=== PATIENT | male | born 1985 | race Caucasian/White ===

== ENCOUNTER → 2021-03-27 03:37 | Outpatient (CLI) | payer OTHER, SELFPAY ==
[2021-03-27 19:43] LABS: SARS-CoV-2 RNA PCR Negative
== END ==
PROVIDERS: PCP Physician Assistant; Visit Provider Internal Medicine Gastroenterology
DX: Z01.812 Encounter for preprocedural laboratory examination (principal); Z20.822 Contact with and (suspected) exposure to COVID-19
CPT/HCPCS: C9803; U0003; U0005

== ENCOUNTER 2021-03-30 02:43 | Day surgery (SDC) | payer OTHER, SELFPAY ==
[2021-03-26 07:24] VITALS: BMI 27.6
[2021-03-30 11:23] VITALS: BP 129/76; PULSE 70; RESP 18; TEMP 36.9; O2SAT 99; BMI 27.1
[2021-03-30] MEDS: LACTATED RINGERS 1,000 ML 150 ML IV CONT (11:32)
--- NOTE | 2021-03-30 11:42 | WPDANESEPPF ---
Anes - Initial Pre Proc Eval Procedure: Operation Date: 03/30/21 12:30 Proposed Procedures p Esophagogastroduodenoscopy - Yon Mata MD Date/Time: 03/30/21 11:42 Surgeon: Yon Mata MD Pre Op Diagnosis: dysphagia Patient Data Age: 35 Gender: M Height: 1.8 m Weight: 88.4 kg Last Vital Signs Temp 36.9 C 03/30/21 11:23 Pulse 70 03/30/21 11:23 Resp 18 03/30/21 11:23 BP 129/76 03/30/21 11:23 Pulse Ox 99 03/30/21 11:23 Allergies Allergy/AdvReac Type Severity Reaction Status Date / Time No Known Allergies Allergy Verified 03/30/21 11:23 Home Medications Medication Instructions Recorded Confirmed Type No Home Medications 03/26/21 03/26/21 History Patient hx anesthesia problems: none Family hx anesthesia problems: none [facility] Past Medical History Medical History (Updated 03/29/21 @ 09:57 by Kevin Reed DO) GERD (gastroesophageal reflux disease) Social History Social History Smoking packs per day: 1 Smoking cigarettes per day: 20.0 Years smoked: 3 Smoking pack-years: 3.00 Smoking status: Former smoker Tobacco type: cigarettes Alcohol intake: current Drinks per week: 21 Living arrangements: with family Spiritual care concerns: No Anes - Eval Final PreProcedure Day of Procedure 03/30/21 11:42 Patient weight: overweight Heart: regular rate and rhythm Lungs: clear to auscultation and normal air movement Airway: Mallampati scale class 1 Neurological: alert and oriented Last oral intake: >/= 8 hours ASA classification: III Emergent: no Anesthetic plan: proceed Anesthesia type and monitoring: general GIVS and standard monitoring Informed Consent: The patient's anesthetic plan and its attendant risks and benefits were discussed with the patient/family/POA. Questions were solicited and answers provided to the satisfaction of the patient/family/POA.
--- NOTE | 2021-03-30 11:52 | PM.HPGS ---
History of Present Illness History of Present Illness Consent: Risks, benefits, and alternatives have been discussed and questions answered. Patient agrees to proceed with procedure. Chief complaint: dysphagia Narrative: Shivam Ramirez is a 35 year old male who has had dysphagia for solid food for the past 7 or 8 months when this occurs he will take a drink of a liquid and weight is caught will eventually pass. He has not had to actually leave the table where something would be caught for an extended length time. He also has noted a tight sensation in his neck for the past several months. Review of Systems Review of Systems: All systems reviewed & are unremarkable except as noted in HPI and below PMFSH Past Medical History Medical History GERD (gastroesophageal reflux disease) Social History Social History Smoking packs per day: 1 Smoking cigarettes per day: 20.0 Years smoked: 3 Smoking pack-years: 3.00 Smoking status: Former smoker Tobacco type: cigarettes Alcohol intake: current Drinks per week: 21 Living arrangements: with family Spiritual care concerns: No Meds Home Medications and Allergies Home Medications Medication Instructions Recorded Confirmed Type No Home Medications 03/26/21 03/26/21 History Allergies Allergy/AdvReac Type Severity Reaction Status Date / Time No Known Allergies Allergy Verified 03/30/21 11:23 Vital Signs Vital Signs - 24 hr 03/30/21 11:23 Temperature 36.9 C Pulse Rate 70 Respiratory Rate 18 Blood Pressure 129/76 Pulse Oximetry 99 Exam Const: General: alert Orientation/consciousness: patient oriented x3 Resp: Auscultation: clear to auscultation bilaterally Cardio: Rhythm: regular rhythm GI: GI Palp: Yes Soft to palpation and No Tenderness to palpation present (GI) Neuro: General: patient oriented x3 Assessment and Plan Assessment and plan (1) Dysphagia: Code(s): R13.10 - Dysphagia, unspecified Status: Acute Assessment and Plan: EGD with possible biopsy or dilatation or cautery.
[2021-03-30] MEDS: BENZOCAINE (*SP) 60 ML SPRAY CAN (HURRICAINE) 1 SPRAY MUCOUS MEM (12:03)
[2021-03-30 12:13] VITALS: BP 119/68; PULSE 75; RESP 13; O2SAT 96
[2021-03-30 12:23] VITALS: BP 123/79; PULSE 79; RESP 13; O2SAT 93
[2021-03-30 12:33] VITALS: BP 140/87; PULSE 75; RESP 13; O2SAT 100
== END 2021-03-30 12:50 | disposition home or self-care (01) ==
PROVIDERS: PCP Physician Assistant; Visit Provider Internal Medicine Gastroenterology
PROC: 0DJ08ZZ Inspection of Upper Intestinal Tract, Via Natural or Artificial Opening Endoscopic (ICD-10-PCS; CPT 43235; principal; 2021-03-30 12:30)
DX: R13.10 Dysphagia, unspecified (principal); K21.00 Gastro-esophageal reflux disease with esophagitis, without bleeding; Z87.891 Personal history of nicotine dependence
CPT/HCPCS: 43239; 88305; C9803; J2704; J7120; U0003; U0005

== ENCOUNTER 2021-04-01 12:37 | Outpatient (CLI) | payer OTHER, SELFPAY ==
--- NOTE | ~2021-04-01 | CT_ITS ---
EXAMINATION: CT abdomen pelvis w con DATE: 04/01/2021 13:06 INDICATION: Right lower quadrant pain for 6 to 7 months TECHNIQUE: Computed tomography (CT) of the abdomen and pelvis was performed with 100 cc Omnipaque 350 intravenous contrast. Automated exposure control and iterative reconstruction technique were employe d. Exam dose: 680.71 mGy-cm total exam DLP. COMPARISON: None. FINDINGS: Normal heart size. No pericardial or pleural effusion. The lung bases are clear of infiltra te or consolidation. The liver, gallbladder, bile ducts, spleen, pancreas, pancreatic duct, and adrenal glands and kidneys appear normal. No urinary tract calculus or hydroureteronephrosis. Moderate diffuse thickening of the urinary bladder wall of uncertain etiology. Consider cystitis or n eurogenic bladder. Normal prostate gland size. Normal caliber of the abdominal aorta. No intraperitoneal or retroperitoneal or pelvic mass lesion or adenopathy or ascites. There are some nondilated fluid containing small bowel segments and scattered occasional small bowel air-fluid levels, which may represent infectious or inflammatory enteritis or mild adynamic ileus. Normal appendix. No bowel obstruction, bowel wall thickening, pneumatosis or intraperitoneal free air . Very slight fat-containing umbilical hernia. Included skeletal structures are unremarkable. Moderate degenerative disc disease at L5-S1 with posterior spurring. Asymmetric deformity/prominence of the left ischium, possibly due to old fracture. No suspicious oste olytic or osteoblastic lesions are noted. IMPRESSION: Moderate diffuse thickening of the urinary bladder wall; consider cystitis, neurogenic b ladder Normal appendix Nondilated fluid containing small bowel segments and scattered air-fluid levels, which may represent infectious or inflammatory enteritis or mild adynamic ileus Reviewed, dictated and finalized at [facility]. Reviewed, dictated and finalized at [facility]. IMPRESSION: Moderate diffuse thickening of the urinary bladder wall; consider cystitis, neurogenic bladder Normal appendix Nondilated fluid containing small bowel segments and scattered air-fluid levels , which may represent infectious or inflammatory enteritis or mild adynamic ile us
--- NOTE | ~2021-04-01 | US_ITS ---
EXAMINATION: US soft tissue head and neck DATE: 04/01/2021 13:20 INDICATION: Neck swelling. TECHNIQUE: Multiple grayscale and Doppler ultrasound images of the neck were obtained. COMPARISON: None FINDINGS: There is no abnormal mass or lymphadenopathy in the patient's area of concern in the anteri or neck. The thyroid is normal. IMPRESSION: 1. No abnormal mass or lymphadenopathy in the patient's area of concern in the anterior neck. Reviewed, dictated and finalized at location [facility].
== END 2021-04-01 12:38 ==
PROVIDERS: PCP Physician Assistant; Visit Provider Physician Assistant
DX: R22.1 Localized swelling, mass and lump, neck (principal); R10.31 Right lower quadrant pain; R93.41 Abnormal radiologic findings on diagnostic imaging of renal pelvis, ureter, or bladder
CPT/HCPCS: 74177; 76536; Q9967

== ENCOUNTER 2025-02-03 10:34 | Outpatient (CLI) | payer OTHER, SELFPAY ==
--- NOTE | ~2025-02-03 | CT_ITS ---
EXAMINATION: CT abdomen pelvis w con DATE: 02/03/2025 10:58 INDICATION: Right lower quadrant abdominal pain. TECHNIQUE: Computed tomography (CT) of the abdomen and pelvis was performed with 100 mL Omnipaque 350 intravenous contrast. Automated exposure control and iterative reconstruction technique were employe d. The dose-length product was 819.52 mGy-cm. COMPARISON: CT abdomen and pelvis 04/01/21 FINDINGS: The visualized portions of the lung bases are clear without pneumonia or pleural effusion. The heart size is normal. No pericardial effusion. There is a 14 mm cyst in the liver. The gallbladde r, spleen, pancreas, adrenal glands, and kidneys are normal. There are no dilated loops of bowel. The appendix is normal. There are no pathologically enlarged lymph nodes. There is no free intraperitone al fluid. There is chronic mild diffuse bladder wall thickening, which may be secondary to chronic ou tlet obstruction from the mildly enlarged prostate. There is an old healed fracture of left ischium. There is moderate lower lumbar spondylosis. IMPRESSION: 1. No specific etiology for the patient's symptoms. Reviewed, dictated and finalized at location [facility].
== END 2025-02-03 10:35 | disposition home or self-care (01) ==
PROVIDERS: PCP Physician Assistant; Visit Provider Physician Assistant
DX: R10.31 Right lower quadrant pain (principal)
CPT/HCPCS: 74177; Q9967

== ENCOUNTER 2025-08-01 00:33 | Day surgery (SDC) | payer OTHER, SELFPAY ==
[2025-07-28 16:02] VITALS: BMI 28.4
[2025-08-01 06:18] VITALS: BP 128/95; PULSE 84; RESP 16; TEMP 36.2; O2SAT 100
[2025-08-01] MEDS: LACTATED RINGERS 1,000 ML 150 ML IV CONT (06:26)
--- NOTE | 2025-08-01 06:58 | WPDANESEPPF ---
Anes - Initial Pre Proc Eval Procedure: Operation Date: 08/01/25 07:30 Proposed Procedures p Diagnostic Colonoscopy - Stephon Oh MD Date/Time: 08/01/25 06:58 Surgeon: Stephon Oh MD Pre Op Diagnosis: Right lower quadrant pain Patient Data Age: 39 Gender: M Height: 1.8 m Weight: 92.2 kg Last Vital Signs Temp 36.2 C L 08/01/25 06:18 Pulse 84 08/01/25 06:18 Resp 16 08/01/25 06:18 BP 128/95 H 08/01/25 06:18 Pulse Ox 100 08/01/25 06:18 O2 Del Method Room Air 08/01/25 06:18 Allergies Allergy/AdvReac Type Severity Reaction Status Date / Time No Known Allergies Allergy Verified 08/01/25 06:17 Home Medications ?Medication ?Instructions ?Recorded ?Confirmed ?Type omeprazole 40 mg capsule,delayed 40 mg PO DAILY #30 caps 03/30/21 08/01/25 Rx release Patient hx anesthesia problems: none Family hx anesthesia problems: none Results Review: All pre-operative results and documents have been reviewed as part of the pre-operative evaluation. [facility] Past Medical History Medical History (Updated 08/01/25 @ 06:58 by Wild Gonzalez MD) Overweight Hyperlipidemia GERD (gastroesophageal reflux disease) Surgical History Surgical History (Updated 08/01/25 @ 06:58 by Wild Gonzalez MD) History of esophagogastroduodenoscopy (EGD) Social History Social History Years smoked: 3 Smoking status: Former smoker Tobacco type: cigarettes Alcohol intake: current Drinks per week: 70 Substance use type: does not use Living arrangements: with family Additional living arrangements comments: with sp Anes - Eval Final PreProcedure Day of Procedure 08/01/25 06:58 Patient weight: overweight Heart: regular rate and rhythm Lungs: clear to auscultation Airway: Mallampati scale class II Neurological: alert and oriented Last oral intake: >/= 8 hours ASA classification: II Emergent: no Anesthetic plan: proceed Anesthesia type and monitoring: general GIVS and standard monitoring Results Review: All pre-operative results and documents have been reviewed as part of the pre-operative evaluation. Informed Consent: The patient's anesthetic plan and its attendant risks and benefits were discussed with the patient/family/POA. Questions were solicited and answers provided to the satisfaction of the patient/family/POA.
--- NOTE | 2025-08-01 07:31 | P.HP_ITS ---
H&P: HPI History of Present Illness Date/Time: 08/01/25 07:31 Chief Complaint: Family history of colon cancer Narrative: This patient has family history of colorectal cancer. his father was recently diagnosed with colon cancer. In addition, the patient suffer from chronic, recurrent right lower quadrant discomfort. Review of Systems Review of Systems: All systems reviewed & are unremarkable except as noted in HPI and below PMFSH Past Medical History Medical History (Updated 08/01/25 @ 07:32 by Stephon Oh MD) Overweight Hyperlipidemia GERD (gastroesophageal reflux disease) Surgical History Surgical History (Updated 08/01/25 @ 06:58 by Wild Gonzalez MD) History of esophagogastroduodenoscopy (EGD) Social History Social History Years smoked: 3 Smoking status: Former smoker Tobacco type: cigarettes Alcohol intake: current Drinks per week: 70 Substance use type: does not use Living arrangements: with family Additional living arrangements comments: with sp Meds Home Medications and Allergies Home Medications ?Medication ?Instructions ?Recorded ?Confirmed ?Type omeprazole 40 mg capsule,delayed 40 mg PO DAILY #30 ca ps 03/30/21 08/01/25 Rx release Allergies Allergy/AdvReac Type Severity Reaction Status Date / Time No Known Allergies Allergy Verified 08/01/25 06:17 Vital Signs Vital Signs - 24 hr 08/01/25 06:18 Temperature 97.2 F L Pulse Rate 84 Respiratory Rate 16 Blood Pressure 128/95 H Pulse Oximetry 100 Oxygen Delivery Room Air Exam Const: General: cooperative and healthy appearing Resp: Effort & Inspection: normal respiratory effort and able to speak in complete sentences Auscultation: clear to auscultation bilaterally Cardio: Rate: regular rate Rhythm: regular rhythm GI: Inspection: normal to inspection GI Palp: No No hepatosplenomegaly present Auscultation: normal bowel sounds Rectal Exam: deferred Skin: General skin exam: normal color Psych: Appearance: grossly normal Mental Status: mental status grossly normal Assessment and Plan Assessment and plan (1) Family history of colon cancer: Code(s): Z80.0 - Family history of malignant neoplasm of digestive organs Status: Acute Assessment and Plan: The patient is deemed a good candidate for the procedure. Consent signed. Will proceed.
[2025-08-01 08:00] VITALS: BP 114/83; PULSE 69; RESP 18; O2SAT 97
[2025-08-01 08:10] VITALS: BP 118/84; PULSE 70; RESP 14; O2SAT 97
[2025-08-01 08:20] VITALS: BP 128/74; PULSE 75; RESP 16; O2SAT 97
== END 2025-08-01 08:35 | disposition home or self-care (01) ==
PROVIDERS: PCP Physician Assistant; Referring Provider Physician Assistant; Visit Provider Internal Medicine Gastroenterology
PROC: 0DJD8ZZ Inspection of Lower Intestinal Tract, Via Natural or Artificial Opening Endoscopic (ICD-10-PCS; CPT 45378; principal; 2025-08-01 07:30)
DX: Z12.11 Encounter for screening for malignant neoplasm of colon (principal); Z80.0 Family history of malignant neoplasm of digestive organs; Z87.891 Personal history of nicotine dependence
CPT/HCPCS: 45378; J2003; J2704; J7120